=== PATIENT | female | born 1975 | race Caucasian/White ===

== ENCOUNTER → 2016-11-13 | Outpatient (CLI) | payer BC ==
--- NOTE | 2016-11-14 10:40 | MM ---
Reason for exam: screening (asymptomatic). Last mammogram was performed 1 year and 4 months ago. History: Patient history of other cancer. Family history of breast cancer in sister at age 48 and breast cancer in paternal aunt. Took hormonal contraceptives for 1 year. Physical Findings: A clinical breast exam by your physician is recommended on an annual basis and results should be correlated with mammographic findings. MG 3D Screening Mammo W/Cad Bilateral CC and MLO view(s) were taken. Prior study comparison: July 28, 2015, bilateral MG 3d work up w/cad [facility]. July 11, 2015, bilateral MG screening mammo w CAD. The breast tissue is heterogeneously dense. This may lower the sensitivity of mammography. Finding: There is a 6 mm equal density (isodense), obscured round mass in the 12 o'clock posterior position of the right breast seen on CC view, partial visualization 07/28/15. No significant changes in finding since July 28, 2015 and July 11, 2015. ASSESSMENT: Benign, BI-RAD 2 RECOMMENDATION: Routine screening mammogram of both breasts in 1 year.
== END | disposition home or self-care (01) ==
LOC: RADMAMWWP 06:59
PROVIDERS: ATTEND Family Medicine
DX: Z12.31 Encounter for screening mammogram for malignant neoplasm of breast (principal)
CPT/HCPCS: 77063; G0202

== ENCOUNTER 2019-09-20 07:02 | Inpatient (IN) | payer BC ==
[2019-09-14 14:30] VITALS: BMI 29.1
--- NOTE | 2019-09-16 09:27 | HP ---
HISTORY AND PHYSICAL DATE OF SURGERY: Friday, September 20, 2019. This is a 44-year-old white female 3, para 1-0-2-1. The patient presented to the office with a history of increasingly difficult long heavy menstrual cycles. Menses are occurring less than 21 days in interval, lasting 6 to 7 days, very heavy with blood clots. Endometrial biopsy was performed and revealed proliferative endometrium with breakdown. Sonogram also performed revealing at least 5 intrauterine fibroids, which have grown in size and number since sonogram 3 years prior. The largest fibroid measuring 7.38 cm. After thorough discussion, the patient is electing to proceed with hysterectomy. She wishes to have the ovaries remain in situ if they are within normal limits to inspection, however, consents to have them removed if for some reason clinically that is thought to be a prudent decision. Patient does report large clot passage at the time of menses. PAST MEDICAL HISTORY: Significant for long-standing dysmenorrhea, dyspareunia, fibroid uterus. She has a history of pelvic inflammatory disease in the past. PAST SURGICAL HISTORY: ACL repair on the right in 2011, section in 1997, colposcopy for abnormal Pap smear 2004, endometrial biopsy as noted above. ALLERGIES: Allergies include BACTRIM DS to which a reaction is not noted, SULFA medications to which she reports hives and a rash, and SEASONAL ALLERGIES. FAMILY HISTORY: Significant for atrial fibrillation and hypertension in the patient's father, COPD in patient's mother, breast cancer in a sister and aunt. REPRODUCTIVE HISTORY: Significant for a low transverse section in 1997. Two spontaneous miscarriages noted, not requiring D and C. SOCIAL HISTORY: Patient states that she drinks alcohol socially. She is employed with a local [employer] company. She does smoke tobacco daily and has for over 20 years. She has a 2-year college degree. Patient is . CURRENT MEDICATIONS: Multivitamin daily. PHYSICAL EXAMINATION: On exam, patient is 5 feet 5 inches, 173 pounds, blood pressure 116/78. The HEENT exam reveals no thyromegaly, no obvious cervical lymphadenopathy. Trachea is midline. Good dentition. Chest was clear to auscultation in all pena anteriorly and posteriorly. The breast exam reveals breasts to be bilaterally symmetric to inspection. No nipple discharge, axillary adenopathy or discernible lesions or masses. Abdomen is soft, nontender. The uterine fundus is palpated in the lower abdominal cavity and is firm and mobile. Active bowel sounds. Extremities reveal no edema, there are good peripheral pulses. Cardiac exam reveals regular rate and rhythm without murmur, click, or rub. On pelvic exam, external genitalia is well estrogenized. Cervix is nulliparous in appearance. Uterus is 16 to 18 week size to palpation, irregular, mobile, tender. No adnexal tenderness is present. Rectal exam reveals good sphincter tone, no hemorrhoids, no rectal masses. The posterior cul-de-sac is very full with the enlarged fibroid uterus. IMPRESSION: A 16 to 18 week size fibroid uterus, symptomatic with menorrhagia, large clot passage, dysmenorrhea and dyspareunia. After thorough consultation, patient is electing surgical palliation. PLAN: We will proceed with total abdominal hysterectomy. Ovaries will be evaluated and left in situ if within normal limits, but will be removed if abnormal to inspection. The risks, benefits, alternatives to the surgery have been discussed in detail. Patient is not a candidate for vaginal hysterectomy, the uterus is quite large for her laparoscopic surgery as well in my judgment. The risks of bleeding, infection, perforation or damage to bowel, bladder, ureters, blood vessels have all been discussed. Risks of anesthesia including aspiration, nerve damage, and even have been discussed. Second opinion has been offered and declined. All questions answered. The patient understands our discussion with no question or reservation at this time. MMODL / IJN: [id number] /
[~2019-09-20 07:02] MED LIST: DEXAMETHASONE SOD PHOSPHATE 10 MG/ML 1 ML VIAL IV ONE; HYDROmorphone 0.5 MG/0.5 ML SYRINGE IVP PRN; LIDOCAINE 1% (10MG/ML) FOR IV START INTRADERMA PRN; SCOPOLAMINE 1.5MG/72HR PATCH TRANSDERM ONE
[2019-09-20] MEDS: LACTATED RINGERS 1,000 ML IV SCH (07:28)
[2019-09-20] MEDS: ONDANSETRON 4 MG/2 ML VIAL IVP ONE ×2 (07:38→11:05)
[2019-09-20] MEDS ORDERED: MIDAZOLAM 2 MG/2 ML VIAL IV ONE (08:28)
[2019-09-20] MEDS ORDERED: fentaNYL (PF) 50 MCG/ML 2 ML AMP ONE (08:38)
[2019-09-20] MEDS ORDERED: PROPOFOL 10 MG/ML 20 ML VIAL IV ONE (08:38)
[2019-09-20] MEDS ORDERED: GLYCOPYRROLATE 0.2 MG/ML 2 ML VIAL ONE (08:38)
[2019-09-20] MEDS ORDERED: LIDOCAINE 1% INJ 10MG/ML (20 ML MDV) ONE (08:38)
[2019-09-20] MEDS ORDERED: ROCURONIUM BROMIDE 10 MG/ML 5 ML VIAL IV ONE (08:38)
[2019-09-20] MEDS ORDERED: MIDAZOLAM 2 MG/2 ML VIAL ONE (08:38)
[2019-09-20] MEDS ORDERED: NEOSTIGMINE 1 MG/ML 10 ML VIAL ONE (08:38)
[2019-09-20] MEDS ORDERED: MORPHINE SULFATE (PF) 0.3 MG/0.3 ML SYR ONE (08:38)
[2019-09-20] MEDS ORDERED: ePHEDrine SULFATE/0.9% NACL/PF 50 MG/5 ML SYRINGE IV ONE (08:38)
[2019-09-20] MEDS ORDERED: LACTATED RINGERS 1,000 ML IV ONE (09:40)
[2019-09-20] MEDS ORDERED: SIMETHICONE 80 MG CHEWABLE PO PRN (11:02)
[2019-09-20] MEDS ORDERED: METOCLOPRAMIDE 5 MG/ML 2 ML VIAL IVP PRN (11:02)
[2019-09-20] MEDS ORDERED: ONDANSETRON 4 MG/2 ML VIAL IVP PRN (11:02)
[2019-09-20] MEDS ORDERED: diphenhydrAMINE 50 MG/ML 1 ML VIAL IVP PRN ×2 (11:02→13:29)
--- NOTE | 2019-09-20 11:02 | P.OP ---
Date of Procedure: 09/20/19 Preoperative Diagnosis: Enlarged fibroid uterus, menorrhagia, back pain. Postoperative Diagnosis: Same, normal-appearing ovaries bilaterally. Procedure(s) Performed: Total abdominal hysterectomy, cystoscopy Anesthesia: SANJANA Surgeon: Melissa Garcia Vehicle Operator Technician #1: Charity Burr Estimated Blood Loss (ml): 350 IV fluids (ml): 1,100 Urine output (ml): 300 Pathology: other (Cervix uterus and fibroid) Condition: stable Disposition: PACU Operative Findings: Normal-appearing ovaries bilaterally. Normal-appearing bladder hart, and bilateral ureters postoperatively via cystoscopic exam. Description of Procedure: Patient is brought to the operating suite after Duramorph spinal is placed in the preoperative area. The cervix, vagina, perineal body, and abdomen are all prepped and draped in usual sterile fashion after general anesthetic is administered without difficulty. Mills catheter placed to direct drainage, antibiotics given, pneumatic stockings placed. The appropriate timeout is performed to assure the proper patient and procedure. Urine hCG is negative. A low transverse skin incision is made through the prior section scar. This is carried down through the subcutaneous tissue to the fascia. Fascia is isolated, scored, and extended bilaterally with curved Kirkland scissors. Peritoneum is next identified and incised, there is no bowel or bladder involvement. The O'Kasi-O'Avila retractor is placed and the abdomen is gently packed with sterile sponges. The uterus is brought into the operative field and held bilaterally with Chelsea clamps. The round ligaments are identified, clamped cut and suture ligated. The infundibulopelvic ligaments are identified, clamped cut and suture ligated as well. There is a large 8-10 cm fibroid on the right uterine sidewall into the broad ligament. This is carefully dissected and brought into the operative field. Uterine vasculature is skeletonized carefully, clamped cut and suture ligated. At all times the bladder is Well from the operative field to avoid bladder and/or ureteral injury. It is mobilized with Metzenbaum scissors and DeBakey forceps along with a sponge rolled finger. At all times the urine is clear in the Mills tube. After the vessels are secured, the uterus is removed above the cervix for better exposure. The right broad ligament fibroid is then completely dissected and also removed. The cervical stump is grasped with Robin clamps. Several additional clamps are taken with straight Heaneys and the cervix is mobilized. It is sent to pathology as well. The vaginal cough is closed with 0 Vicryl suture for excellent reapproximation. Hemostasis is excellent. The cavity is then generously irrigated, all pedicles are revisualized and noted to be clean and dry. Both ovaries appear normal to inspection and her left in situ per the patient's wishes. No evidence of pelvic endometriosis. The peritoneum is allowed to close by secondary intention. The fascia is closed in a running stitch of 0 Vicryl with over ligation in the midline. Subcutaneous tissue is irrigated, clean and dry. It is reapproximated with 3-0 Vicryl in a running fashion, 4-0 undyed Monocryl is used subcuticularly for final skin closure. Steri-Strips and Mastisol are applied to the wound. At this time the cystoscope is prepared. The urethra is once again prepped with Betadine as the Mills catheter is removed. With lubrication the cystoscope was placed in the bladder is distended with sterile saline. The anterior posterior bladder hart, both lateral hart are all inspected and noted to be smooth without defect. There is no bleeding noted. Bilateral ureters are inspected and noted to be peristalsing clear urine. The cystoscope was removed. The Mills catheter is reinserted. Again urine is noted to be clear throughout. Total estimated blood loss 350 mL's. Patient is brought back to recovery room in very good condition with stable vital signs including a pulse of 60, blood pressure 99/42, 100% O2 saturation. All sponge needle and enhancement counts are correct at the end of our procedure.
[2019-09-20] MEDS ORDERED: PROMETHAZINE INJ 25 MG/ML 1 ML VIAL IVPB ONE (11:37)
[2019-09-20] MEDS: KETOROLAC 30 MG/ML 1 ML VIAL IVP PRN ×2 (12:56→18:53)
[2019-09-20] MEDS ORDERED: NALOXONE 0.4 MG/ML 1 ML VIAL IV PRN (13:29)
[2019-09-21] MEDS: LACTATED RINGERS 1,000 ML IV SCH (00:07)
[2019-09-21] MEDS: KETOROLAC 30 MG/ML 1 ML VIAL IVP PRN (05:46)
[2019-09-21 07:47] LABS: Basophils % (A) 0 %; Eosinophils % (A) 1 %; HCT 30.4 % (34.0-46.0); Lymphocytes # (A) 1.7 k/uL (1.0-4.8); Lymphocytes % (A) 22 %; MCH 28.6 pg (25.0-35.0); MCHC 32.6 g/dL (31.0-37.0); MCV 87.7 fL (80.0-100.0); Mean Platelet Volume 8.8; Monocytes # (A) 0.5 k/uL (0-1.0); Monocytes % (A) 6 %; Neutrophils # (A) 5.2 k/uL (1.3-7.7); Neutrophils % (A) 69 %; Platelet Count 233 k/uL (150-450); RBC 3.46 m/uL (3.80-5.40); RDW 13.3 % (11.5-15.5); WBC 7.6 k/uL (3.8-10.6)
[2019-09-21 08:00] LABS: HGB 9.9 gm/dL (11.4-16.0)
--- NOTE | 2019-09-21 08:19 | P.DS ---
Providers Date of admission: 09/20/19 07:02 Expected date of discharge: 09/21/19 Attending physician: Melissa Garcia Primary care physician: Stated None Hospital Course: This is a 44-year-old female who presented for hysterectomy for enlarged fibroid uterus, menorrhagia, and back pain. Sonographic exam revealed multiple uterine fibroids, largest 8 cm. Please see dictated history and physical for details. Patient underwent total abdominal hysterectomy under my care yesterday. She did well intraoperatively, cystoscopy after the surgery revealed normally peristalsing ureters and intact bladder to close up. Estimated blood loss 350 m L's. Ovaries were left in situ per the patient's wishes. Please see dictated operative note for details. This morning the patient is doing well. She has only minimal pain. She is voiding, ambulating, passing flatus. There is no vaginal drainage. Incision is clean and dry, intact, Steri-Strips applied. Patient is tolerating regular diet. Postoperative hemoglobin 9.9. Patient is judged to be in very good condition for discharge home. She will follow-up with me in the office in 2 weeks. No intercourse, tampons or douching. No heavy lifting. No driving for 2 weeks. She will use over -the-counter Aleve or Advil, or ibuprofen, 800 mg every 8 hours. She will alternate this with exercise strength Tylenol, 1000 mg every 4 hours as needed. She will call with any fevers shakes or chills, foul smelling or bloody vaginal drainage, with any pain not alleviated by [id number] products or with any concerns. She will take an [id number] iron supplement daily and I will recheck hemoglobin postoperatively. All questions answered. Final pathology report pending. Patient Condition at Discharge: Good Plan - Discharge Summary Discharge Rx Participant: No New Discharge Prescriptions: No Action No Known Home Medications Discharge Medication List No Known Home Medications 09/14/19 [History] Follow up Appointment(s)/Referral(s): Melissa Garcia MD [STAFF PHYSICIAN] - 2 Weeks Discharge Disposition: HOME SELF-CARE
[2019-09-21 08:40] VITALS: RESP 16
--- NOTE | 2019-09-21 10:00 | P.PN ---
Progress Note - Text Progress Note Date: 09/21/19 (630 AM) Patient was seen at bedside at 6:30 AM. Patient is postop day 1 from total abdominal hysterectomy with Duramorph spinal placed for pain control. VAS score is 0/10. Patient has mild side effects from the form of itching, she was nauseated last night, this has resolved. Lower extremity sensation and motor function is intact. Patient has ambulated.
[2019-09-21] MEDS: IBUPROFEN 600 MG TAB PO PRN ×2 (11:59→17:57)
[2019-09-21 13:03] VITALS: TEMP 98.2
[2019-09-21] MEDS ORDERED: ACETAMINOPHEN TAB 500 MG TAB PO PRN (14:43)
[2019-09-21 17:28] VITALS: BP 98/54; PULSE 75
== END 2019-09-21 18:25 | disposition home or self-care (01) | DRG 743 ==
LOC: 2ORMAIN 07:02 → 4FBP 12:12
PROVIDERS: ADMIT Obstetrics & Gynecology; ATTEND Obstetrics & Gynecology
PROC: 0UTC0ZZ Resection of Cervix, Open Approach (ICD-10-PCS; principal; 2019-09-20 08:30)
PROC: 0TJB8ZZ Inspection of Bladder, Via Natural or Artificial Opening Endoscopic (ICD-10-PCS; principal; 2019-09-20 08:30)
PROC: 0UT90ZZ Resection of Uterus, Open Approach (ICD-10-PCS; principal; 2019-09-20 08:30)
DX: D25.9 Leiomyoma of uterus, unspecified (principal); F17.210 Nicotine dependence, cigarettes, uncomplicated; N92.0 Excessive and frequent menstruation with regular cycle; N94.6 Dysmenorrhea, unspecified; N94.10 Unspecified dyspareunia; K21.9 Gastro-esophageal reflux disease without esophagitis; M54.9 Dorsalgia, unspecified; Z71.6 Tobacco abuse counseling; Z87.42 Personal history of other diseases of the female genital tract; Z98.891 History of uterine scar from previous surgery; Z98.890 Other specified postprocedural states; Z88.2 Allergy status to sulfonamides; Z91.048 Other nonmedicinal substance allergy status; Z82.49 Family history of ischemic heart disease and other diseases of the circulatory system; Z82.5 Family history of asthma and other chronic lower respiratory diseases; Z80.3 Family history of malignant neoplasm of breast
CPT/HCPCS: 81025; 85025; 86850; 86900; 86901; 88307; 88341; 88342

== ENCOUNTER → 2022-07-09 | Outpatient (CLI) | payer BC ==
--- NOTE | 2022-07-09 13:50 | MM ---
Reason for Exam: Screening (asymptomatic). Last mammogram was performed 5 year(s) and 8 month(s) ago. Patient History: Menarche at age 11. First Full-Term at age 23. Hysterectomy at age 45. Patient used Hormonal Contraceptives for 1 year. Paternal aunt had breast cancer. Sister had breast cancer, age 48. Risk Values: Debby 5 year model risk: 1.8%. NCI Lifetime model risk: 17.1%. Prior Study Comparison: 07/11/2015 Bilateral Screening Mammogram, [facility]. 07/28/2015 Bilateral Diagnostic Mammogram, [facility]. 11/13/2016 Bilateral Screening Mammogram, [facility]. Tissue Density: The breast tissue is heterogeneously dense. This may lower the sensitivity of mammography. Findings: Analyzed By CAD. There is no suspicious group of microcalcifications or new suspicious mass in either breast. Overall Assessment: Negative, BI-RAD 1 Management: Screening Mammogram of both breasts in 1 year. A clinical breast exam by your physician is recommended on an annual basis and results should be correlated with mammographic findings. Electronically signed and approved by: Mario Alberto Proctor D.O.
== END | disposition home or self-care (01) ==
LOC: RADMAMWWP 09:55
PROVIDERS: ATTEND Family Medicine
DX: Z12.31 Encounter for screening mammogram for malignant neoplasm of breast (principal); Z80.3 Family history of malignant neoplasm of breast
CPT/HCPCS: 77063; 77067

== ENCOUNTER → 2024-11-05 | Outpatient (CLI) | payer OTHER ==
--- NOTE | 2024-11-05 14:20 | MM ---
Reason for Exam: Screening (asymptomatic). Last mammogram was performed 2 year(s) and 4 month(s) ago. Patient History: Menarche at age 11. First Full-Term at age 23. Hysterectomy at age 45. Patient used Hormonal Contraceptives for 1 year. Paternal aunt had breast cancer. Sister had breast cancer, age 48. Risk Values: Debby 5 year model risk: 2.0%. NCI Lifetime model risk: 16.6%. Prior Study Comparison: 07/28/2015 Bilateral Diagnostic Mammogram, [facility]. 11/13/2016 Bilateral Screening Mammogram, [facility]. 07/09/2022 Bilateral MG 3D screening mammo w/cad, [facility]. Tissue Density: The breasts are heterogeneously dense, which may obscure small masses. Findings: Analyzed By CAD. There is no suspicious group of microcalcifications or new suspicious mass in either breast. Benign-appearing calcifications. Overall Assessment: Benign, BI-RAD 2 Management: Screening Mammogram of both breasts in 1 year. . Patient should continue monthly self-breast exams. A clinical breast exam by your physician is recommended on an annual basis. This exam should not preclude additional follow-up of suspicious palpable abnormalities. Note on Debby scores and lifetime risk: 1. A Debby score greater than 3% is considered moderate risk. If this is the case, consider specialist referral to assess eligibility for a risk reducing agent. 2. If overall lifetime risk for the development of breast cancer is 20% or higher, the patient may qualify for future screening with alternating mammogram and breast MRI. [facility], , 11/05/2024 2:16 PM. Electronically signed and approved by: Best Zafar M.D. Radiolog[facility]
== END | disposition home or self-care (01) ==
LOC: RADMAMWWP 13:38
PROVIDERS: ATTEND Family Medicine
DX: Z12.31 Encounter for screening mammogram for malignant neoplasm of breast (principal); R92.333 Mammographic heterogeneous density, bilateral breasts; Z78.0 Asymptomatic menopausal state; Z80.3 Family history of malignant neoplasm of breast; Z92.0 Personal history of contraception
CPT/HCPCS: 77063; 77067